=== PATIENT | female | born 1965 | race Caucasian/White ===

== ENCOUNTER → 2017-04-10 | Outpatient (CLI) | payer BC ==
--- NOTE | 2017-04-14 10:00 | MM ---
Reason for exam: screening (asymptomatic). Last mammogram was performed 1 year and 1 month ago. History: Family history of breast cancer in mother at age 48. Took hormonal contraceptives for 10 years. Physical Findings: A clinical breast exam by your physician is recommended on an annual basis and results should be correlated with mammographic findings. MG Screening Mammo w CAD Bilateral CC and MLO view(s) were taken. Prior study comparison: March 05, 2016, bilateral MG screening mammo w CAD. August 12, 2014, bilateral MG screening mammo w CAD. There are scattered fibroglandular densities. No significant changes when compared with prior studies. ASSESSMENT: Benign, BI-RAD 2 RECOMMENDATION: Routine screening mammogram of both breasts in 1 year.
== END | disposition home or self-care (01) ==
LOC: RADMAMWWP 15:36
PROVIDERS: ATTEND Obstetrics & Gynecology
DX: Z12.31 Encounter for screening mammogram for malignant neoplasm of breast (principal)

== ENCOUNTER 2017-05-04 01:59 | Emergency (ER) | payer BC ==
[2017-05-04 02:07] VITALS: TEMP 97.1
[2017-05-04] MEDS ORDERED: predniSONE 50 MG TAB PO STA (02:55)
[2017-05-04] MEDS ORDERED: ORPHENADRINE 30 MG/ML 2 ML VIAL IM STA (02:55)
[2017-05-04] MEDS ORDERED: HYDROmorphone 1 MG/ML 1 ML SYRINGE IM STA (02:55)
--- NOTE | 2017-05-04 03:04 | ED ---
Back Pain [facility] - General Chief Complaint: Back Pain/Injury Stated Complaint: low back pain Time Seen by Provider: 05/04/17 02:23 Source: patient, family, RN notes reviewed Limitations: no limitations - History of Present Illness Initial Comments: 51-year-old female presents emergency Department with chief complaint of low back pain. She's been having increasing pain over the last couple days. 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 She states that she has a history of similar problems with this. She denies any bowel tenderness bladder retention. Denies any abdominal pain. She does have some pain that radiates to her left leg to her knee denies any associated paresthesias or weakness. Patient had prior cervical fusion but no other spinal surgeries. Patient states that she took tramadol and Ativan at home earlier this evening with no relief. - Related Data Home Medications Medication Instructions Recorded Confirmed Dewaopy-Eskf-[id number] 2 each PO Q4HR PRN 11/29/14 12/07/14 [Excedrin] DULoxetine HCL [Cymbalta] 60 mg PO BID 11/29/14 12/07/14 LORazepam [Ativan] 0.5 mg PO DAILY 11/29/14 12/07/14 Levothyroxine Sodium [Synthroid] 150 mcg PO DAILY 11/29/14 12/07/14 Multivitamins, Thera [Theragran] 1 each PO DAILY 11/29/14 12/07/14 Propranolol HCl [Inderal LA] 80 mg PO DAILY 11/29/14 12/07/14 valACYclovir HCL [Valacyclovir] 1,000 mg PO DAILY 11/29/14 12/07/14 Previous Rx's Medication Instructions Recorded oxyCODONE HCL/ACETAMINOPHEN 1 each PO Q6HR PRN #90 tab 12/07/14 [Percocet 7.5-325 mg] Cyclobenzaprine [Flexeril] 10 mg PO TID PRN #15 tab 05/04/17 HYDROcodone/APAP 7.5-325MG [[place] 1 tab PO Q6HR PRN #25 tab 05/04/17 7.5-325] predniSONE 50 mg PO DAILY #4 tab 05/04/17 Allergies Allergy/AdvReac Type Severity Reaction Status Date / Time topiramate [From Topamax] Allergy Itching Verified 05/04/17 02:07 Review of Systems ROS Statement: Those systems with pertinent positive or pertinent negative responses have been documented in the HPI. ROS Other: All systems not noted in ROS Statement are negative. Past Medical History Additional Past Medical History / Comment(s): neck pain, back pain History of Any Multi-Drug Resistant Organisms: None Reported Past Surgical History: Appendectomy, Section, Hysterectomy Past Psychological History: No Psychological Hx Reported Smoking Status: Never smoker General Exam Limitations: no limitations General appearance: alert, in no apparent distress Head exam: Present: atraumatic, normocephalic, normal inspection Respiratory exam: Present: normal lung sounds bilaterally. Absent: respiratory distress, wheezes, rales, rhonchi, stridor Cardiovascular Exam: Present: regular rate, normal rhythm, normal heart sounds. Absent: systolic murmur, diastolic murmur, rubs, gallop, clicks GI/Abdominal exam: Present: soft, normal bowel sounds. Absent: distended, tenderness, guarding, rebound, rigid Extremities exam: Present: normal inspection, full ROM, normal capillary refill , other (Lower extremity strength equal bilaterally, neurovascular intact pulses equal bilaterally). Absent: tenderness, pedal edema, joint swelling, calf tenderness Back exam: Present: full ROM (With moderate discomfort), tenderness (Tenderness of left lumbar region), paraspinal tenderness, other (Pain with left straight leg raise). Absent: CVA tenderness (R), CVA tenderness (L), vertebral tenderness Neurological exam: Present: alert, oriented X3, CN II-XII intact, reflexes normal. Absent: motor sensory deficit Skin exam: Present: warm, dry, intact, normal color. Absent: rash Course Vital Signs 05/04/17 05/04/17 02:03 03:06 Temperature 97.1 F L Pulse Rate 89 85 Respiratory 18 16 Rate Blood Pressure 141/72 121/70 O2 Sat by Pulse 100 96 Oximetry Medical Decision Making - Medical Decision Making 51-year-old female presented for low back pain. Patient lumbar radiculopathy. Patient has no red flecks symptoms. Patient pain was addressed here in emergency department be discharged with pain medication advised to do daily stretching heat and ice follow-up with PCP return parameters were discussed. Patient agrees to plan. Disposition Clinical Impression: Strain of lumbar region, Lumbar radiculopathy Disposition: HOME SELF-CARE Condition: Stable Instructions: Acute Low Back Pain (ED) Additional Instructions: Please return to the Emergency Department if symptoms worsen or any other concerns. Prescriptions: Cyclobenzaprine [Flexeril] 10 mg PO TID PRN #15 tab PRN Reason: Muscle Spasm HYDROcodone/APAP 7.5-325MG [[place] 7.5-325] 1 tab PO Q6HR PRN #25 tab PRN Reason: Pain predniSONE 50 mg PO DAILY #4 tab Referrals: Aba Ferguson MD [Primary Care Provider] - 1-2 days Time of Disposition: 03:04
[2017-05-04 03:17] VITALS: BP 121/70; PULSE 85; RESP 16
== END 2017-05-04 03:19 | disposition home or self-care (01) ==
LOC: EC 01:59
DX: S39.012A Strain of muscle, fascia and tendon of lower back, initial encounter (principal); M54.16 Radiculopathy, lumbar region; Z98.1 Arthrodesis status; Z88.8 Allergy status to other drugs, medicaments and biological substances; Z79.899 Other long term (current) drug therapy; X50.1XXA Overexertion from prolonged static or awkward postures, initial encounter
CPT/HCPCS: 99282; 96372 ×2; J2360; J1170; J7512

== ENCOUNTER → 2018-04-13 | Outpatient (CLI) | payer BC ==
--- NOTE | 2018-04-14 11:25 | MM ---
Reason for exam: screening (asymptomatic). Last mammogram was performed 1 year ago. History: Family history of breast cancer in mother at age 48. Took hormonal contraceptives for 10 years. Physical Findings: A clinical breast exam by your physician is recommended on an annual basis and results should be correlated with mammographic findings. MG Screening Mammo w CAD Bilateral CC and MLO view(s) were taken. Prior study comparison: April 10, 2017, bilateral MG screening mammo w CAD. March 05, 2016, bilateral MG screening mammo w CAD. There are scattered fibroglandular densities. No suspicious abnormality. No significant changes when compared with prior studies. ASSESSMENT: Benign, BI-RAD 2 RECOMMENDATION: Routine screening mammogram of both breasts in 1 year.
== END | disposition home or self-care (01) ==
LOC: RADMAMWWP 10:31
PROVIDERS: ATTEND Obstetrics & Gynecology
DX: Z12.31 Encounter for screening mammogram for malignant neoplasm of breast (principal)
CPT/HCPCS: 77067

== ENCOUNTER 2018-07-22 21:07 | Emergency (ER) | payer BC ==
[2018-07-22 21:28] VITALS: TEMP 98.7
--- NOTE | 2018-07-22 21:36 | ED ---
Psych HPI - General Source: patient, RN notes reviewed, old records reviewed Mode of arrival: ambulatory - History of Present Illness MD Complaint: suicidal ideation, feels depressed -: unknown Associated Psychiatric Symptoms: suicidal ideation, racing thoughts History of same: Yes Quality: constant Improves With: none Worsens With: none Associated Symptoms: denies other symptoms Treatments Prior to Arrival: placed on mental health hold If Self Harm: admits thoughts of self harm <Dewey Valdes - Last Filed: 07/22/18 22:20> <Damari Basurto - Last Filed: 07/23/18 03:52> - General Chief Complaint: Psychiatric Symptoms Stated Complaint: Petition Time Seen by Provider: 07/22/18 21:33 - History of Present Illness Initial Comments: This is a 53-year-old female the ER for evaluation. Patient presents for evaluation of mental health. Patient did states she has suicidal intent today. Patient does abuse polypharmacy, multiple drugs. Does admit to positive psychiatric illness currently with suicidal thoughts (Dewey Valdes) - Related Data Home Medications Medication Instructions Recorded Confirmed Njlohvl-Awjc-Asoq [id number] 2 each PO Q4HR PRN 11/29/14 12/07/14 [Excedrin] DULoxetine HCL [Cymbalta] 60 mg PO BID 11/29/14 12/07/14 LORazepam [Ativan] 0.5 mg PO DAILY 11/29/14 12/07/14 Levothyroxine Sodium [Synthroid] 150 mcg PO DAILY 11/29/14 12/07/14 Multivitamins, Thera [Theragran] 1 each PO DAILY 11/29/14 12/07/14 Propranolol HCl [Inderal LA] 80 mg PO DAILY 11/29/14 12/07/14 valACYclovir HCL [Valacyclovir] 1,000 mg PO DAILY 11/29/14 12/07/14 Previous Rx's Medication Instructions Recorded oxyCODONE HCL/ACETAMINOPHEN 1 each PO Q6HR PRN #90 tab 12/07/14 [Percocet 7.5-325 mg] Cyclobenzaprine [Flexeril] 10 mg PO TID PRN #15 tab 05/04/17 HYDROcodone/APAP 7.5-325MG [[place] 1 tab PO Q6HR PRN #25 tab 05/04/17 7.5-325] predniSONE 50 mg PO DAILY #4 tab 05/04/17 Allergies Allergy/AdvReac Type Severity Reaction Status Date / Time topiramate [From Topamax] Allergy Itching Verified 07/22/18 21:28 Review of Systems ROS Other: All systems not noted in ROS Statement are negative. <Dewey Valdes - Last Filed: 07/22/18 22:20> ROS Other: All systems not noted in ROS Statement are negative. <Damari Basurto - Last Filed: 07/23/18 03:52> ROS Statement: Those systems with pertinent positive or pertinent negative responses have been documented in the HPI. Past Medical History Additional Past Medical History / Comment(s): neck pain, back pain History of Any Multi-Drug Resistant Organisms: None Reported Past Surgical History: Appendectomy, Section, Hysterectomy Past Psychological History: No Psychological Hx Reported Smoking Status: Never smoker Past Alcohol Use History: None Reported Past Drug Use History: None Reported <Dewey Valdes - Last Filed: 07/22/18 22:20> General Exam Limitations: no limitations General appearance: alert, appears intoxicated Head exam: Present: atraumatic, normocephalic, normal inspection Eye exam: Present: normal appearance, PERRL, EOMI. Absent: scleral icterus, conjunctival injection, periorbital swelling ENT exam: Present: normal exam, mucous membranes moist Neck exam: Present: normal inspection. Absent: tenderness, meningismus, lymphadenopathy Respiratory exam: Present: normal lung sounds bilaterally. Absent: respiratory distress, wheezes, rales, rhonchi, stridor Cardiovascular Exam: Present: regular rate, normal rhythm, normal heart sounds. Absent: systolic murmur, diastolic murmur, rubs, gallop, clicks GI/Abdominal exam: Present: soft, normal bowel sounds. Absent: distended, tenderness, guarding, rebound, rigid Extremities exam: Present: normal inspection, full ROM, normal capillary refill. Absent: tenderness, pedal edema, joint swelling, calf tenderness Back exam: Present: normal inspection Neurological exam: Present: alert, oriented X3, CN II-XII intact Psychiatric exam: Present: normal affect, normal mood Skin exam: Present: warm, dry, intact, normal color. Absent: rash <Dewey Valdes - Last Filed: 07/22/18 22:20> Course <Dewey Valdes - Last Filed: 07/22/18 22:20> Vital Signs 07/22/18 07/23/18 21:22 00:56 Temperature 98.7 F Pulse Rate 108 H 98 Respiratory 20 16 Rate Blood Pressure 166/105 165/105 O2 Sat by Pulse 97 98 Oximetry - Reevaluation(s) Reevaluation #1: 07/22/18 22:20 Medical record is reviewed (Dewey Valdes) Reevaluation #2: 07/22/18 22:20 Medical clear for psychiatric evaluation, patient's petition (Dewey Valdes) Medical Decision Making <Damari Basurto - Last Filed: 07/23/18 03:52> - Medical Decision Making She was evaluated by EPS to determine the patient is acutely intoxicated but otherwise stable for discharge and outpatient follow-up (Damari Basurto) - Lab Data Lab Results 07/22/18 Range/Units 21:53 Urine Opiates Screen Detected H (NotDetected) Ur Oxycodone Screen Not Detected (NotDetected) Urine Methadone Screen Not Detected (NotDetected) Ur Propoxyphene Screen Not Detected (NotDetected) Ur Barbiturates Screen Not Detected (NotDetected) U Tricyclic Antidepress Not Detected (NotDetected) Ur Phencyclidine Scrn Not Detected (NotDetected) Ur Amphetamines Screen Detected H (NotDetected) U Methamphetamines Scrn Not Detected (NotDetected) U Benzodiazepines Scrn Detected H (NotDetected) Urine Cocaine Screen Not Detected (NotDetected) U Marijuana (THC) Screen Detected H (NotDetected) Disposition <Dewey Valdes - Last Filed: 07/22/18 22:20> Is patient prescribed a controlled substance at d/c from ED?: No <Damari Basurto - Last Filed: 07/23/18 03:52> Clinical Impression: Agitation Disposition: HOME SELF-CARE Condition: Stable Instructions (If sedation given, give patient instructions): Polysubstance Abuse (ED) Referrals: Aba Ferguson MD [Primary Care Provider] - 1-2 days
[2018-07-22 22:17] LABS: Amphetamine Screen,Urine Detected (NotDetected); Barbiturate Screen,Urine Not Detected (NotDetected); Benzodiazepines Screen,Urine Detected (NotDetected); Cocaine Screen,Urine Not Detected (NotDetected); Methadone Screen, Urine Not Detected (NotDetected); Opiate Screen,Urine Detected (NotDetected); Oxycodone Screen, Urine Not Detected (NotDetected); Phencyclidine Screen,Urine Not Detected (NotDetected); Tricyclic Antidepressant,Urine Not Detected (NotDetected); Urn Cannabinoid Scrn Detected (NotDetected)
[2018-07-23 00:56] VITALS: BP 165/105; PULSE 98; RESP 16
== END 2018-07-23 01:08 | disposition home or self-care (01) ==
LOC: EC 21:07
DX: R45.1 Restlessness and agitation (principal); R45.851 Suicidal ideations; F32.9 Major depressive disorder, single episode, unspecified; Z79.890 Hormone replacement therapy; Z79.899 Other long term (current) drug therapy; Z88.8 Allergy status to other drugs, medicaments and biological substances
CPT/HCPCS: 80306; 99285

== ENCOUNTER → 2019-03-26 | Outpatient (CLI) | payer BC ==
--- NOTE | 2019-03-26 09:51 | MR ---
EXAMINATION TYPE: MR cervical spine wo/w con DATE OF EXAM: 03/26/2019 COMPARISON: Plain film 12/07/2014 HISTORY: cervicalgia TECHNIQUE: Multiplanar, multisequence images of the cervical spine were acquired utilizing 7 mL intravenous Gada vist gadolinium contrast. Diffusion weighted imaging was performed. C2-C3: Uncovertebral joint hypertrophy, facet arthropathy results in some mild foraminal encroachment on the left, no disc herniation or spinal stenosis C3-C4: There is foraminal encroachment present right greater than left. Posterior broad-based disc bu lge may contact the anterior cervical cord, mild spinal stenosis. C4-C5: Posterior broad-based disc bulge contacts the anterior cervical cord, mild spinal stenosis is suggested, there is left-sided foraminal encroachment due to uncovertebral joint hypertrophy and face t arthropathy. C5-C6: Posterior extension of heart disc may contact the anterior cervical cord, mild spinal stenosis . Foraminal encroachment is present on the right greater than left. C6-C7: No significant spinal stenosis or disc herniation, no foraminal encroachment. C7-T1: No significant foraminal encroachment or spinal stenosis. No disc herniation. Cervical segments are intact. There is normal alignment. Cervical spinal cord is of normal signal. Craniovertebral junction relationships are within normal limits. Patient is status post anterior ce rvical fusion and discectomy at C5-C7. Susceptibility artifact due to patient's hardware is present. Loss of disc height signal is present at the intervertebral levels C2-3, C3-4, C4-5, C7-T1 as well as upper thoracic spine. Suspect a curvature in the upper thoracic spine. No abnormal enhancement follo wing contrast administration. Mild inflammatory change in the sphenoid sinus. IMPRESSION: Postop changes. Degenerative disc disease, multilevel foraminal encroachment.
== END | disposition home or self-care (01) ==
LOC: RADMRIMAIN 08:51
PROVIDERS: ATTEND Orthopaedic Surgery Orthopaedic Surgery of the Spine
DX: M50.30 Other cervical disc degeneration, unspecified cervical region (principal); Z98.1 Arthrodesis status
CPT/HCPCS: 72156

== ENCOUNTER → 2019-05-12 | Outpatient (CLI) | payer BC ==
--- NOTE | 2019-05-13 14:23 | MM ---
Reason for exam: screening (asymptomatic). Last mammogram was performed 1 year and 1 month ago. History: Family history of breast cancer in mother at age 48. Took hormonal contraceptives for 10 years. Physical Findings: A clinical breast exam by your physician is recommended on an annual basis and results should be correlated with mammographic findings. MG Screening Mammo w CAD Bilateral CC and MLO view(s) were taken. Prior study comparison: April 13, 2018, bilateral MG screening mammo w CAD. April 10, 2017, bilateral MG screening mammo w CAD. There are scattered fibroglandular densities. No suspicious abnormality. No significant changes when compared with prior studies. ASSESSMENT: Negative, BI-RAD 1 RECOMMENDATION: Routine screening mammogram of both breasts in 1 year.
== END | disposition home or self-care (01) ==
LOC: RADMAMWWP 07:39
PROVIDERS: ATTEND Obstetrics & Gynecology
DX: Z12.31 Encounter for screening mammogram for malignant neoplasm of breast (principal); Z80.3 Family history of malignant neoplasm of breast
CPT/HCPCS: 77067

== ENCOUNTER 2019-12-15 08:14 | Emergency (ER) | payer BC ==
[2019-12-15 08:20] VITALS: TEMP 97.5
[2019-12-15] MEDS ORDERED: HYDROmorphone 0.5 MG/0.5 ML SYRINGE IVP STA (08:27)
[2019-12-15] MEDS ORDERED: ONDANSETRON 4 MG/2 ML VIAL IVP STA (08:27)
[2019-12-15] MEDS ORDERED: SODIUM CHLORIDE 0.9% 2,000 ML IV STA (08:27)
--- NOTE | 2019-12-15 08:33 | ED ---
Abdominal Pain HPI - General Source: patient, RN notes reviewed Mode of arrival: ambulatory Limitations: no limitations <Rufino Lassiter - Last Filed: 12/15/19 10:17> <Mai Wong - Last Filed: 12/15/19 22:45> - General Chief Complaint: Abdominal Pain Stated Complaint: ABD pain Time Seen by Provider: 12/15/19 08:17 - History of Present Illness Initial Comments: 54-year-old female presents emergency Department chief complaint of abdominal pain that started this morning. She states she initially thought it was just gas. Patient states that the pain has intensified primarily lower abdomen on the left. She denies any diarrhea or constipation. Denies any dysuria hematuria no history of diverticulitis. Denies any flank pain, nausea vomiting fever or chills. Patient states nothing really makes the pain feel better or worse at this time. She's had a prior appendectomy. She denies any chest pain or shortness breath. (Rufino Lassiter) - Related Data Home Medications Medication Instructions Recorded Confirmed DULoxetine HCL [Cymbalta] 60 mg PO BID 11/29/14 12/07/14 LORazepam [Ativan] 0.5 mg PO BID PRN 11/29/14 12/15/19 Levothyroxine Sodium [Synthroid] 150 mcg PO DAILY 11/29/14 12/15/19 Multivitamins, Thera [Theragran] 1 tab PO DAILY 11/29/14 12/15/19 Propranolol HCl [Inderal LA] 80 mg PO DAILY 11/29/14 12/07/14 valACYclovir HCL [Valacyclovir] 1,000 mg PO DAILY 11/29/14 12/15/19 Butalb/APAP/Caff 50-325-40Mg 1 tab PO BID PRN 12/15/19 12/15/19 [Fioricet 50-325-40] Phentermine HCl [Adipex-P] 37.5 mg PO DAILY 12/15/19 12/15/19 Previous Rx's Medication Instructions Recorded Cyclobenzaprine [Flexeril] 10 mg PO TID PRN #15 tab 05/04/17 HYDROcodone/APAP 10-325MG [[place] 1 tab PO Q6HR PRN 3 Days #12 tab 12/15/19 10-325] Ketorolac [Toradol] 10 mg PO Q8HR #15 tab 12/15/19 Ondansetron Odt [Zofran Odt] 4 mg PO Q8HR PRN #10 tab 12/15/19 Tamsulosin [Flomax] 0.4 mg PO DAILY #7 cap 12/15/19 Allergies Allergy/AdvReac Type Severity Reaction Status Date / Time topiramate [From Topamax] Allergy Itching Verified 12/15/19 09:22 Review of Systems ROS Other: All systems not noted in ROS Statement are negative. <Rufino Lassiter - Last Filed: 12/15/19 10:17> ROS Other: All systems not noted in ROS Statement are negative. <Mai Wong - Last Filed: 12/15/19 22:45> ROS Statement: Those systems with pertinent positive or pertinent negative responses have been documented in the HPI. Past Medical History Additional Past Medical History / Comment(s): chronic neck pain, back pain History of Any Multi-Drug Resistant Organisms: None Reported Past Surgical History: Appendectomy, Section, Hysterectomy Past Psychological History: No Psychological Hx Reported Smoking Status: Never smoker Past Alcohol Use History: None Reported Past Drug Use History: Marijuana <Rufino Lassiter - Last Filed: 12/15/19 10:17> General Exam Limitations: no limitations General appearance: alert, in no apparent distress Head exam: Present: atraumatic, normocephalic, normal inspection Eye exam: Present: normal appearance, PERRL, EOMI. Absent: scleral icterus, conjunctival injection, periorbital swelling Neck exam: Present: normal inspection, full ROM. Absent: tenderness, meningismu s, lymphadenopathy Respiratory exam: Present: normal lung sounds bilaterally. Absent: respiratory distress, wheezes, rales, rhonchi, stridor Cardiovascular Exam: Present: regular rate, normal rhythm, normal heart sounds. Absent: systolic murmur, diastolic murmur, rubs, gallop, clicks GI/Abdominal exam: Present: soft, tenderness (Moderate left lower quadrant tenderness), normal bowel sounds. Absent: distended, guarding, rebound, rigid Back exam: Absent: CVA tenderness (R), CVA tenderness (L) Neurological exam: Present: alert, oriented X3 Skin exam: Present: warm, dry, intact, normal color. Absent: rash <Rufino Lassiter - Last Filed: 12/15/19 10:17> Course Vital Signs 12/15/19 12/15/19 12/15/19 08:17 09:06 09:59 Temperature 97.5 F L Pulse Rate 79 81 72 Respiratory 18 14 16 Rate Blood Pressure 175/112 168/91 O2 Sat by Pulse 100 100 100 Oximetry Medical Decision Making - Lab Data Result diagrams: 12/15/19 08:44 12/15/19 08:44 <Rufino Lassiter - Last Filed: 12/15/19 10:17> - Lab Data Result diagrams: 12/15/19 08:44 12/15/19 08:44 <Mai Wong - Last Filed: 12/15/19 22:45> - Medical Decision Making 54-year-old female presented for left lower quadrant flank pain. Patient has a 2-3 mm UVJ stone. Pain is improved after pain meds, fluids Toradol. Patient discharged with pain meds Toradol and Zofran and Flomax patient follow-up with primary care physician and urology. (Rufino Lassiter) I was available for consultation in the emergency department. The history and physical exam were done by the midlevel provider. I was consulted for this patients care. I reviewed the case with the midlevel provider and based on their presentation of the patient, I agree with the assessment, medical decision making and plan of care as documented. Chart was dictated using [employer] dictation software. Attempts were made to correct any dictation errors however some typographical errors may persist. Patient was seen during a national state of emergency due to the Covid-19 pandemic. (Mai Wong) - Lab Data Lab Results 12/15/19 12/15/19 12/15/19 Range/Units 08:44 08:44 08:44 WBC 11.8 H (3.8-10.6) k/uL RBC 4.35 (3.80-5.40) m/uL Hgb 13.1 (11.4-16.0) gm/dL Hct 40.5 (34.0-46.0) % MCV 93.3 (80.0-100.0) fL MCH 30.2 (25.0-35.0) pg MCHC 32.3 (31.0-37.0) g/dL RDW 12.8 (11.5-15.5) % Plt Count 347 (150-450) k/uL Neutrophils % 82 % Lymphocytes % 9 % Monocytes % 5 % Eosinophils % 2 % Basophils % 0 % Neutrophils # 9.7 H (1.3-7.7) k/uL Lymphocytes # 1.1 (1.0-4.8) k/uL Monocytes # 0.6 (0-1.0) k/uL Eosinophils # 0.3 (0-0.7) k/uL Basophils # 0.0 (0-0.2) k/uL Sodium 133 L (137-145) mmol/L Potassium 4.3 (3.5-5.1) mmol/L Chloride 101 (98-107) mmol/L Carbon Dioxide 24 (22-30) mmol/L Anion Gap 8 mmol/L BUN 14 (7-17) mg/dL Creatinine 0.47 L (0.52-1.04) mg/dL Est GFR (CKD-EPI)AfAm >90 (>60 ml/min/1.73 sqM) Est GFR (CKD-EPI)NonAf >90 (>60 ml/min/1.73 sqM) Glucose 105 H (74-99) mg/dL Plasma Lactic Acid Markus (0.7-2.0) mmol/L Calcium 9.6 (8.4-10.2) mg/dL Total Bilirubin 0.3 (0.2-1.3) mg/dL AST 27 (14-36) U/L ALT 18 (4-34) U/L Alkaline Phosphatase 62 (38-126) U/L Total Protein 6.9 (6.3-8.2) g/dL Albumin 4.2 (3.5-5.0) g/dL Lipase 61 (23-300) U/L Urine Color Yellow Urine Appearance Clear (Clear) Urine pH 6.5 (5.0-8.0) Ur Specific [place] 1.019 (1.001-1.035) Urine Protein Negative (Negative) Urine Glucose (UA) Negative (Negative) Urine Ketones Negative (Negative) Urine Blood Negative (Negative) Urine Nitrite Negative (Negative) Urine Bilirubin Negative (Negative) Urine Urobilinogen <2.0 (<2.0) mg/dL Ur Leukocyte Esterase Negative (Negative) 12/15/19 Range/Units 08:44 WBC (3.8-10.6) k/uL RBC (3.80-5.40) m/uL Hgb (11.4-16.0) gm/dL Hct (34.0-46.0) % MCV (80.0-100.0) fL MCH (25.0-35.0) pg MCHC (31.0-37.0) g/dL RDW (11.5-15.5) % Plt Count (150-450) k/uL Neutrophils % % Lymphocytes % % Monocytes % % Eosinophils % % Basophils % % Neutrophils # (1.3-7.7) k/uL Lymphocytes # (1.0-4.8) k/uL Monocytes # (0-1.0) k/uL Eosinophils # (0-0.7) k/uL Basophils # (0-0.2) k/uL Sodium (137-145) mmol/L Potassium (3.5-5.1) mmol/L Chloride (98-107) mmol/L Carbon Dioxide (22-30) mmol/L Anion Gap mmol/L BUN (7-17) mg/dL Creatinine (0.52-1.04) mg/dL Est GFR (CKD-EPI)AfAm (>60 ml/min/1.73 sqM) Est GFR (CKD-EPI)NonAf (>60 ml/min/1.73 sqM) Glucose (74-99) mg/dL Plasma Lactic Acid Markus 1.1 (0.7-2.0) mmol/L Calcium (8.4-10.2) mg/dL Total Bilirubin (0.2-1.3) mg/dL AST (14-36) U/L ALT (4-34) U/L Alkaline Phosphatase (38-126) U/L Total Protein (6.3-8.2) g/dL Albumin (3.5-5.0) g/dL Lipase (23-300) U/L Urine Color Urine Appearance (Clear) Urine pH (5.0-8.0) Ur Specific [place] (1.001-1.035) Urine Protein (Negative) Urine Glucose (UA) (Negative) Urine Ketones (Negative) Urine Blood (Negative) Urine Nitrite (Negative) Urine Bilirubin (Negative) Urine Urobilinogen (<2.0) mg/dL Ur Leukocyte Esterase (Negative) Disposition Is patient prescribed a controlled substance at d/c from ED?: Yes When asked, does pt state using other controlled substances?: No If prescribed controlled substance>3 days was MAPS reviewed?: Prescribed <3 Days If opioid is for acute pain is fill amount 7 days or less?: Yes If Rx opioid, was Start Talking consent form obtained?: Yes Time of Disposition: 10:20 <Rufino Lassiter - Last Filed: 12/15/19 10:17> <Mai Wong - Last Filed: 12/15/19 22:45> Clinical Impression: Left ureteral calculus Disposition: HOME SELF-CARE Condition: Stable Instructions (If sedation given, give patient instructions): Kidney Stones (ED) Additional Instructions: Please return to the Emergency Department if symptoms worsen or any other concerns. Prescriptions: Tamsulosin [Flomax] 0.4 mg PO DAILY #7 cap HYDROcodone/APAP 10-325MG [[place] 10-325] 1 tab PO Q6HR PRN 3 Days #12 tab PRN Reason: pain Ketorolac [Toradol] 10 mg PO Q8HR #15 tab Ondansetron Odt [Zofran Odt] 4 mg PO Q8HR PRN #10 tab PRN Reason: Nausea Referrals: Aba Ferguson MD [Primary Care Provider] - 1-2 days Yves Choi MD [STAFF PHYSICIAN] - 1-2 days
[2019-12-15] MEDS ORDERED: HYDROmorphone 1 MG/ML 1 ML SYRINGE IVP STA (08:56)
[2019-12-15 09:10] LABS: Appearance,Urine Clear (Clear); Bilirubin,Urine Negative (Negative); Blood,Urine Negative (Negative); Color,Urine Yellow; Glucose,Urine (UA) Negative (Negative); Ketones,Urine Negative (Negative); Leukocyte Esterase,Urine Negative (Negative); Nitrite,Urine Negative (Negative); PH, Urine 6.5 (5.0-8.0); Protein,Urine Negative (Negative); Specific Gravity,Urine 1.019 (1.001-1.035); Urobilinogen,Urine <2.0 mg/dL (<2.0)
[2019-12-15 09:14] LABS: Basophils % (A) 0 %; Eosinophils # (A) 0.3 k/uL (0-0.7); Eosinophils % (A) 2 %; HCT 40.5 % (34.0-46.0); HGB 13.1 gm/dL (11.4-16.0); Lymphocytes # (A) 1.1 k/uL (1.0-4.8); Lymphocytes % (A) 9 %; MCH 30.2 pg (25.0-35.0); MCHC 32.3 g/dL (31.0-37.0); MCV 93.3 fL (80.0-100.0); Mean Platelet Volume 7.3; Monocytes # (A) 0.6 k/uL (0-1.0); Monocytes % (A) 5 %; Neutrophils # (A) 9.7 k/uL (1.3-7.7); Neutrophils % (A) 82 %; Platelet Count 347 k/uL (150-450); RBC 4.35 m/uL (3.80-5.40); RDW 12.8 % (11.5-15.5); WBC 11.8 k/uL (3.8-10.6)
--- NOTE | 2019-12-15 09:14 | CT ---
EXAMINATION TYPE: CT abdomen pelvis w con DATE OF EXAM: 12/15/2019 HISTORY: generalized pain not further specified per order. CT DLP: 726.5mGycm Automated Exposure Control for Dose Reduction was Utilized. CONTRAST: CT scan of the abdomen and pelvis is performed without oral but with IV Contrast, patient injected wi th 100 mL of Isovue 300. COMPARISON: None FINDINGS: LUNG BASES: No significant abnormality is appreciated. LIVER/GB: No significant abnormality is appreciated. PANCREAS: No significant abnormality is seen. SPLEEN: No significant abnormality is seen. ADRENALS: No significant abnormality is seen. KIDNEYS: There is asymmetric left-sided delayed or absent excretion secondary to obstructing 2 to 3 m m calculus at left UVJ axial image 70 causing asymmetric fairly moderate left-sided hydronephrosis an d hydroureter. No additional renal calculi bilaterally. No right-sided hydronephrosis. No intralumina l calculus in the poorly distended bladder. BOWEL: Slightly suboptimal evaluation of bowel without enteric contrast. No suspicious small or larg e bowel dilatation. Moderate prominence of fecal material in the right colon. Low-lying cecum into th e right pelvis. UTERUS/ADNEXA: Uterus surgically absent or markedly atrophic. Few scattered adjacent pelvic phlebolit hs noted. LYMPH NODES: No greater than 1cm abdominal or pelvic lymph nodes are appreciated. OSSEOUS STRUCTURES: Dextroconvex scoliosis centered near the thoracolumbar junction. Slight grade 1 a nterolisthesis L4 on L5. Mild to moderate multilevel spurring in the spine. Moderate disc space narro wing T11-T12 level with mild to moderate spurring. Mild to moderate axial joint space loss in both hi ps. Facet arthropathy lower lumbar levels. OTHER: Overlying metallic umbilical ornament. IMPRESSION: There is 2 to 3 mm calculus at left UVJ causing moderate left-sided hydronephrosis and de layed excretion.
[2019-12-15] MEDS ORDERED: KETOROLAC 15 MG/ML 1 ML VIAL IVP STA (09:16)
[2019-12-15] MEDS ORDERED: TAMSULOSIN 0.4 MG CAP.ER.24H PO STA (09:17)
[2019-12-15 09:19] LABS: ALT 18 U/L (4-34); AST 27 U/L (14-36); African American GFR (CKD) >90 (>60 ml/min/1.73 sqM); Albumin 4.2 g/dL (3.5-5.0); Alkaline Phosphatase 62 U/L (38-126); Anion Gap 8 mmol/L; Blood Urea Nitrogen 14 mg/dL (7-17); Calcium 9.6 mg/dL (8.4-10.2); Carbon Dioxide 24 mmol/L (22-30); Chloride 101 mmol/L (98-107); Glucose 105 mg/dL (74-99); Non-African American GFR(CKD) >90 (>60 ml/min/1.73 sqM); Potassium 4.3 mmol/L (3.5-5.1); Sodium 133 mmol/L (137-145); Total Bilirubin 0.3 mg/dL (0.2-1.3); Total Protein 6.9 g/dL (6.3-8.2)
[2019-12-15 10:00] VITALS: BP 168/91; PULSE 72; RESP 16
== END 2019-12-15 10:28 | disposition home or self-care (01) ==
LOC: EC 08:14
DX: N13.2 Hydronephrosis with renal and ureteral calculous obstruction (principal); Z79.899 Other long term (current) drug therapy; Z79.890 Hormone replacement therapy; Z90.89 Acquired absence of other organs; Z90.710 Acquired absence of both cervix and uterus; Z88.8 Allergy status to other drugs, medicaments and biological substances
CPT/HCPCS: 36415; 80053; 83605; 83690; 85025; 81003; 74177; 99284; 96374; 96375 ×2; 96376; 96361; J2405; J1170 ×2; J1885; Q9967

== ENCOUNTER → 2020-07-04 | Outpatient (CLI) | payer BC ==
--- NOTE | 2020-07-04 12:37 | MM ---
Reason for exam: screening (asymptomatic). Last mammogram was performed 1 year and 2 months ago. History: Patient is postmenopausal. Family history of breast cancer in mother at age 48. Took hormonal contraceptives for 10 years. Physical Findings: A clinical breast exam by your physician is recommended on an annual basis and results should be correlated with mammographic findings. MG Screening Mammo w CAD Bilateral CC and MLO view(s) were taken. Prior study comparison: May 12, 2019, bilateral MG screening mammo w CAD. April 13, 2018, bilateral MG screening mammo w CAD. There are scattered fibroglandular densities. There is no discrete abnormality. ASSESSMENT: Negative, BI-RAD 1 RECOMMENDATION: Routine screening mammogram of both breasts in 1 year.
== END ==
LOC: RADMAMWWP 11:26
PROVIDERS: ATTEND Obstetrics & Gynecology
DX: Z12.31 Encounter for screening mammogram for malignant neoplasm of breast (principal); Z80.3 Family history of malignant neoplasm of breast; Z78.0 Asymptomatic menopausal state
CPT/HCPCS: 77067

== ENCOUNTER → 2021-07-05 | Outpatient (CLI) | payer BC ==
--- NOTE | 2021-07-09 10:32 | MM ---
Reason for exam: screening (asymptomatic). Last mammogram was performed 1 year ago. History: Patient is postmenopausal. Family history of breast cancer in mother at age 48. Took hormonal contraceptives for 10 years. Physical Findings: A clinical breast exam by your physician is recommended on an annual basis and results should be correlated with mammographic findings. MG 3D Screening Mammo W/Cad Bilateral CC and MLO view(s) were taken. Prior study comparison: July 04, 2020, bilateral MG screening mammo w CAD. May 12, 2019, bilateral MG screening mammo w CAD. There are scattered fibroglandular densities. No significant changes when compared with prior studies. ASSESSMENT: Negative, BI-RAD 1 RECOMMENDATION: Routine screening mammogram of both breasts in 1 year.
== END | disposition home or self-care (01) ==
LOC: RADMAMWWP 09:16
PROVIDERS: ATTEND Obstetrics & Gynecology
DX: Z12.31 Encounter for screening mammogram for malignant neoplasm of breast (principal); Z80.3 Family history of malignant neoplasm of breast
CPT/HCPCS: 77063; 77067

== ENCOUNTER → 2022-07-12 | Outpatient (CLI) | payer BC ==
--- NOTE | 2022-07-15 09:25 | MM ---
Reason for Exam: Screening (asymptomatic). Last screening mammogram was performed 12 month(s) ago. Patient History: Menarche at age 12. First Full-Term at age 19. Hysterectomy at age 40. Postmenopausal. Patient used Hormonal Contraceptives for 10 years. Mother had breast cancer, age 48. Risk Values: Deloris 5 year model risk: 2.4%. NCI Lifetime model risk: 12.7%. Prior Study Comparison: 05/12/2019 Bilateral Screening Mammogram, [facility]. 07/04/2020 Bilateral Screening Mammogram, [facility]. 07/05/2021 Bilateral Screening Mammogram, [facility]. Tissue Density: There are scattered fibroglandular densities. Findings: Analyzed By CAD. There is no suspicious group of microcalcifications or new suspicious mass in either breast. Overall Assessment: Negative, BI-RAD 1 Management: Screening Mammogram of both breasts in 1 year. A clinical breast exam by your physician is recommended on an annual basis and results should be correlated with mammographic findings. Electronically signed and approved by: Homar Khan M.D.
== END | disposition home or self-care (01) ==
LOC: RADMAMWWP 08:21
PROVIDERS: ATTEND Obstetrics & Gynecology
DX: Z12.31 Encounter for screening mammogram for malignant neoplasm of breast (principal); Z78.0 Asymptomatic menopausal state; Z80.3 Family history of malignant neoplasm of breast
CPT/HCPCS: 77063; 77067

== ENCOUNTER → 2023-10-09 | Outpatient (CLI) | payer BC ==
--- NOTE | 2023-10-10 11:21 | MM ---
Reason for Exam: Screening (asymptomatic). Last mammogram was performed 1 year(s) and 3 month(s) ago. Patient History: Menarche at age 12. First Full-Term at age 19. Hysterectomy at age 40. Postmenopausal. Patient used Hormonal Contraceptives for 10 years. Mother had breast cancer, age 48. Risk Values: Deloris 5 year model risk: 2.5%. NCI Lifetime model risk: 12.4%. Prior Study Comparison: 07/04/2020 Bilateral Screening Mammogram, [facility]. 07/05/2021 Bilateral Screening Mammogram, [facility]. 07/12/2022 Bilateral MG 3D screening mammo w/cad, [facility]. Tissue Density: There are scattered areas of fibroglandular density. Findings: Analyzed By CAD. There is no suspicious group of microcalcifications or new suspicious mass in either breast. Overall Assessment: Benign, BI-RAD 2 Management: Screening Mammogram of both breasts in 1 year. . Patient should continue monthly self-breast exams. A clinical breast exam by your physician is recommended on an annual basis. This exam should not preclude additional follow-up of suspicious palpable abnormalities. Note on Deloris scores and lifetime risk: 1. A Deloris score greater than 3% is considered moderate risk. If this is the case, consider specialist referral to assess eligibility for a risk reducing agent. 2. If overall lifetime risk for the development of breast cancer is 20% or higher, the patient may qualify for future screening with alternating mammogram and breast MRI. Electronically signed and approved by: Fredis Wilde M.D. Radiologis
== END | disposition home or self-care (01) ==
LOC: RADMAMWWP 07:35
PROVIDERS: ATTEND Obstetrics & Gynecology
DX: Z12.31 Encounter for screening mammogram for malignant neoplasm of breast (principal); Z78.0 Asymptomatic menopausal state; Z80.3 Family history of malignant neoplasm of breast
CPT/HCPCS: 77063; 77067

== ENCOUNTER → 2024-03-23 | Outpatient (CLI) | payer BC ==
--- NOTE | 2024-03-23 18:45 | CT ---
EXAMINATION TYPE: CT brain wo con DATE OF EXAM: 03/23/2024 4:10 PM COMPARISON: 05/15/2010. CLINICAL INDICATION: Female, 58 years old with history of R55 SYNCOPE R51.9 HEADACHE S06.0XAA CONCUSS ION, syncope, headache TECHNIQUE: Brain: Axial CT images of the brain were obtained with coronal and sagittal reformats created and rev iewed. Contrast used: None. Oral contrast used: None. CT DLP: 1029.9 mGycm, Automated exposure control for dose reduction was used. FINDINGS: Brain: Extra-axial spaces: No abnormal extra-axial fluid collections. Ventricular system: Within normal limits Cerebral parenchyma: No acute intraparenchymal hemorrhage or mass effect. The davis-white junction is well differentiated. Cerebellum: Unremarkable. Mass effect: No evidence of midline shift. Intracranial vasculature: Atherosclerotic calcifications of the intracranial vessels. Soft tissues: Normal. Calvarium/osseous structures: No depressed skull fracture. Paranasal sinuses and mastoid air cells: Mild scattered paranasal sinus disease. Visualized orbits: Orbital contents are intact. IMPRESSION: No acute intracranial process. [facility], , 03/23/2024 6:43 PM
== END | disposition home or self-care (01) ==
LOC: RADCTMAIN 15:53
PROVIDERS: ATTEND Family Medicine
DX: S06.0XAA Concussion with loss of consciousness status unknown, initial encounter (principal); R55 Syncope and collapse; R51.9 Headache, unspecified
CPT/HCPCS: 70450

== ENCOUNTER 2024-04-17 09:40 | Emergency (ER) | payer BC ==
[2024-04-17] MEDS: KETOROLAC 15 MG/ML 1 ML VIAL IVP STA (10:02)
[2024-04-17] MEDS: HYDROmorphone 0.5 MG/0.5 ML SYRINGE IVP STA ×2 (10:03→11:28)
--- NOTE | 2024-04-17 10:06 | ED ---
General Adult HPI - General Chief complaint: Chest Pain Stated complaint: chest pain Time Seen by Provider: 04/17/24 09:45 Source: patient, RN notes reviewed, old records reviewed Mode of arrival: wheelchair Limitations: no limitations - History of Present Illness Initial comments: This is a 58-year-old female who presents to the emergency department stating that on Friday she fell forward and landed on her chest and now she has left- sided chest pain it hurts with breathing hurts to palpate. Patient states if she lays still and does not move it does not hurt that much. Patient denies any difficulty breathing but she does have painful breathing. Patient denies any fever chills but she has had a cough for about a month. Patient denies any a bdominal pain patient denies back pain. Patient denies any radiation of the pain. Patient denies any diaphoretic episode - Related Data Home Medications Medication Instructions Recorded Confirmed DULoxetine HCL [Cymbalta] 60 mg PO BID 11/29/14 12/07/14 LORazepam [Ativan] 0.5 mg PO BID PRN 11/29/14 12/15/19 Levothyroxine Sodium [Synthroid] 150 mcg PO DAILY 11/29/14 12/15/19 Multivitamins, Thera [Theragran] 1 tab PO DAILY 11/29/14 12/15/19 Propranolol HCl [Inderal LA] 80 mg PO DAILY 11/29/14 12/07/14 valACYclovir HCL [Valacyclovir] 1,000 mg PO DAILY 11/29/14 12/15/19 Butalb/APAP/Caff 50-325-40Mg 1 tab PO BID PRN 12/15/19 12/15/19 [Fioricet 50-325-40] Phentermine HCl [Adipex-P] 37.5 mg PO DAILY 12/15/19 12/15/19 Previous Rx's Medication Instructions Recorded Cyclobenzaprine [Flexeril] 10 mg PO TID PRN #15 tab 05/04/17 HYDROcodone/APAP 10-325MG [[place] 1 tab PO Q6HR PRN 3 Days #12 tab 12/15/19 10-325] Ketorolac [Toradol] 10 mg PO Q8HR #15 tab 12/15/19 Ondansetron Odt [Zofran Odt] 4 mg PO Q8HR PRN #10 tab 12/15/19 Tamsulosin [Flomax] 0.4 mg PO DAILY #7 cap 12/15/19 Ketorolac [Toradol] 10 mg PO Q8HR #15 tab 04/17/24 Allergies Allergy/AdvReac Type Severity Reaction Status Date / Time topiramate [From Topamax] Allergy Itching Verified 04/17/24 09:41 Review of Systems ROS Statement: Those systems with pertinent positive or pertinent negative responses have been documented in the HPI. ROS Other: All systems not noted in ROS Statement are negative. Past Medical History Additional Past Medical History / Comment(s): chronic neck pain, back pain. headaches. DDD History of Any Multi-Drug Resistant Organisms: None Reported Past Surgical History: Appendectomy, Section, Hysterectomy Additional Past Surgical History / Comment(s): spinal ablation Past Psychological History: No Psychological Hx Reported Smoking Status: Never smoker Past Alcohol Use History: None Reported Past Drug Use History: Marijuana General Exam - General Exam Comments Initial Comments: GENERAL: Patient is well-developed and well-nourished. Patient is nontoxic and well- hydrated and is in moderate distress. ENT: Neck is soft and supple. No significant lymphadenopathy is noted. Oropharynx is clear. Moist mucous membranes. Neck has full range of motion without eliciting any pain. EYES: The sclera were anicteric and conjunctiva were pink and moist. Extraocular movements were intact and pupils were equal round and reactive to light. Eyelids were unremarkable. PULMONARY: Unlabored respirations. Good breath sounds bilaterally. No audible rales rhonchi or wheezing was noted. CARDIOVASCULAR: There is a regular rate and rhythm without any murmurs gallops or rubs. ABDOMEN: Soft and nontender with normal bowel sounds. SKIN: Skin is clear with no lesions or rashes and otherwise unremarkable. NEUROLOGIC: Patient is alert and oriented x3. Cranial nerves II through XII are grossly intact. Motor and sensory are also intact. Normal speech, volume and content. Symmetrical smile. MUSCULOSKELETAL: Normal extremities with adequate strength and full range of motion. LYMPHATICS: No significant lymphadenopathy is noted PSYCHIATRIC: Normal psychiatric evaluation. Limitations: no limitations Course Vital Signs 04/17/24 04/17/24 04/17/24 09:41 10:08 11:28 Temperature 97.9 F 98.3 F Pulse Rate 101 H 80 77 Respiratory 26 H 20 18 Rate Blood Pressure 145/107 132/96 97/77 O2 Sat by Pulse 96 95 99 Oximetry Medical Decision Making - Medical Decision Making EKG shows a sinus rhythm at 79 bpm MI was 161 QRS is 85 QT interval 341 QTc is 3 76. Patient's EKG shows no ST segment elevation or depression Was pt. sent in by a medical professional or institution (, KATY, MACHINE BUILDER, urgent care, hospital, or senior care...) When possible be specific @ -No Did you speak to anyone other than the patient for history (EMS, parent, family, police, friend...)? What history was obtained from this source @ -No Did you review nursing and triage notes (agree or disagree)? Why? @ -I reviewed and agree with nursing and triage notes Were old charts reviewed (outside hosp., previous admission, EMS record, old EKG, old radiological studies, urgent care reports/EKG's, senior care records)? Report findings @ -No old charts were reviewed Differential Diagnosis? @ -Differential Musculoskeletal Muscular strain, contusion, ligament sprain, fracture, arthritis, septic arthritis, bursitis, cellulitis, muscle spasm, nerve compression, DVT, arterial occlusion, herpes zoster, electrolyte abnormality, tumor.... This is not meant to be in all inclusive list EKG interpreted by me (3pts min.). @ -As above X-rays interpreted by me (1pt min.). @ -Chest x-ray shows no acute abnormality CT interpreted by me (1pt min.). @ -CT of the chest shows no acute abnormality U/S interpreted by me (1pt. min.). @ -None done What testing was considered but not performed or refused? (CT, X-rays, U/S, labs)? Why? @ -None What meds were considered but not given or refused? Why? @ -None Did you discuss the management of the patient with other professionals (professionals i.e. KATY Gerber, MACHINE BUILDER, lab, RT, psych nurse, social welfare research worker, vision mixer, teacher, transportation security officer, counter caser)? Give summary @ -No Was smoking cessation discussed for >3mins.? @ -No Was critical care preformed (if so, how long)? @ -No Were there social determinants of health that impacted care today? How? (Homelessness, low income, unemployed, alcoholism, drug addiction, transportation, low edu. Level, literacy, decrease access to med. care, long term, rehab)? @ -No Was there de-escalation of care discussed even if they declined (Discuss DNR or withdrawal of care, Hospice)? DNR status @ -No What co-morbidities impacted this encounter? (DM, HTN, Smoking, COPD, CAD, Cancer, CVA, ARF, Chemo, Hep., AIDS, mental health diagnosis, sleep apnea, morbid obesity)? @ -None Was patient admitted / discharged? Hospital course, mention meds given and route, prescriptions, significant lab abnormalities, going to OR and other pertinent info. @ -I went back into the room patient was feeling considerably better because of the Toradol and Dilaudid. Patient was pulling herself up in bed sitting up straight and moving around twisting because she was upset that no one could explain her pain. Patient was thrashing around in the bed and twisting [id number] with no pain exhibited even her friend who came with her spoke to me in the hallway and stated he was noticing this as well. Undiagnosed new problem with uncertain prognosis? @ -No Drug Therapy requiring intensive monitoring for toxicity (Heparin, Nitro, Insulin, Cardizem)? @ -No Were any procedures done? @ -No Diagnosis/symptom? @ -Chest wall contusion Acute, or Chronic, or Acute on Chronic? @ -Acute Uncomplicated (without systemic symptoms) or Complicated (systemic symptoms)? @ -Complicated Side effects of treatment? @ -No Exacerbation, Progression, or Severe Exacerbation? @ -No Poses a threat to life or bodily function? How? (Chest pain, USA, PA, pneumonia, PE, COPD, DKA, ARF, appy, cholecystitis, CVA, Diverticulitis, Homicidal, Suicidal, threat to staff... and all critical care pts) @ -No - Lab Data Result diagrams: 04/17/24 10:04 04/17/24 10:04 Lab Results 04/17/24 04/17/24 04/17/24 Range/Units 10:04 10:04 10:04 WBC 9.7 (3.8-10.6) k/uL RBC 4.49 (3.80-5.40) m/uL Hgb 13.3 (11.4-16.0) gm/dL Hct 42.0 (34.0-46.0) % MCV 93.6 (80.0-100.0) fL MCH 29.5 (25.0-35.0) pg MCHC 31.6 (31.0-37.0) g/dL RDW 13.3 (11.5-15.5) % Plt Count 422 (150-450) k/uL MPV 6.9 Neutrophils % 46 % Lymphocytes % 42 % Monocytes % 5 % Eosinophils % 5 % Basophils % 1 % Neutrophils # 4.5 (1.3-7.7) k/uL Lymphocytes # 4.1 (1.0-4.8) k/uL Monocytes # 0.5 (0-1.0) k/uL Eosinophils # 0.4 (0-0.7) k/uL Basophils # 0.1 (0-0.2) k/uL D-Dimer (<0.60) mg/L FEU Sodium 136 L (137-145) mmol/L Potassium 4.0 (3.5-5.1) mmol/L Chloride 103 (98-107) mmol/L Carbon Dioxide 28 (22-30) mmol/L Anion Gap 5 mmol/L BUN 19 H (7-17) mg/dL Creatinine 0.68 (0.52-1.04) mg/dL Est GFR (CKD-EPI)AfAm >90 (>60 ml/min/1.73 sqM) Est GFR (CKD-EPI)NonAf >90 (>60 ml/min/1.73 sqM) Glucose 101 H (74-99) mg/dL Calcium 9.3 (8.4-10.2) mg/dL Total Bilirubin 0.5 (0.2-1.3) mg/dL AST 19 (14-36) U/L ALT 15 (4-34) U/L Alkaline Phosphatase 58 (38-126) U/L Total Protein 7.4 (6.3-8.2) g/dL Albumin 4.5 (3.5-5.0) g/dL Influenza Type A (PCR) Not Detected (Not Detectd) Influenza Type B (PCR) Not Detected (Not Detectd) RSV (PCR) Not Detected (Not Detectd) SARS-CoV-2 (PCR) Not Detected (Not Detectd) 12/21/24 Range/Units 10:04 WBC (3.8-10.6) k/uL RBC (3.80-5.40) m/uL Hgb (11.4-16.0) gm/dL Hct (34.0-46.0) % MCV (80.0-100.0) fL MCH (25.0-35.0) pg MCHC (31.0-37.0) g/dL RDW (11.5-15.5) % Plt Count (150-450) k/uL MPV Neutrophils % % Lymphocytes % % Monocytes % % Eosinophils % % Basophils % % Neutrophils # (1.3-7.7) k/uL Lymphocytes # (1.0-4.8) k/uL Monocytes # (0-1.0) k/uL Eosinophils # (0-0.7) k/uL Basophils # (0-0.2) k/uL D-Dimer 0.69 H (<0.60) mg/L FEU Sodium (137-145) mmol/L Potassium (3.5-5.1) mmol/L Chloride (98-107) mmol/L Carbon Dioxide (22-30) mmol/L Anion Gap mmol/L BUN (7-17) mg/dL Creatinine (0.52-1.04) mg/dL Est GFR (CKD-EPI)AfAm (>60 ml/min/1.73 sqM) Est GFR (CKD-EPI)NonAf (>60 ml/min/1.73 sqM) Glucose (74-99) mg/dL Calcium (8.4-10.2) mg/dL Total Bilirubin (0.2-1.3) mg/dL AST (14-36) U/L ALT (4-34) U/L Alkaline Phosphatase (38-126) U/L Total Protein (6.3-8.2) g/dL Albumin (3.5-5.0) g/dL Influenza Type A (PCR) (Not Detectd) Influenza Type B (PCR) (Not Detectd) RSV (PCR) (Not Detectd) SARS-CoV-2 (PCR) (Not Detectd) Disposition Clinical Impression: Chest wall contusion Disposition: HOME SELF-CARE Condition: Good Instructions (If sedation given, give patient instructions): Chest Wall Pain (ED) Prescriptions: Ketorolac [Toradol] 10 mg PO Q8HR #15 tab Is patient prescribed a controlled substance at d/c from ED?: No Referrals: Lisandro Ashton MD [Primary Care Provider] - 1-2 days Time of Disposition: 12:53
[2024-04-17 10:10] LABS: Basophils # (A) 0.1 k/uL (0-0.2); Basophils % (A) 1 %; Eosinophils # (A) 0.4 k/uL (0-0.7); Eosinophils % (A) 5 %; HGB 13.3 gm/dL (11.4-16.0); Lymphocytes # (A) 4.1 k/uL (1.0-4.8); Lymphocytes % (A) 42 %; MCH 29.5 pg (25.0-35.0); MCHC 31.6 g/dL (31.0-37.0); MCV 93.6 fL (80.0-100.0); Mean Platelet Volume 6.9; Monocytes # (A) 0.5 k/uL (0-1.0); Monocytes % (A) 5 %; Neutrophils # (A) 4.5 k/uL (1.3-7.7); Neutrophils % (A) 46 %; Platelet Count 422 k/uL (150-450); RBC 4.49 m/uL (3.80-5.40); RDW 13.3 % (11.5-15.5); WBC 9.7 k/uL (3.8-10.6)
[2024-04-17 10:14] VITALS: TEMP 98.3
[2024-04-17 10:19] LABS: ALT 15 U/L (4-34); AST 19 U/L (14-36); African American GFR (CKD) >90 (>60 ml/min/1.73 sqM); Albumin 4.5 g/dL (3.5-5.0); Alkaline Phosphatase 58 U/L (38-126); Anion Gap 5 mmol/L; Blood Urea Nitrogen 19 mg/dL (7-17); Calcium 9.3 mg/dL (8.4-10.2); Carbon Dioxide 28 mmol/L (22-30); Chloride 103 mmol/L (98-107); Glucose 101 mg/dL (74-99); Non-African American GFR(CKD) >90 (>60 ml/min/1.73 sqM); Sodium 136 mmol/L (137-145); Total Bilirubin 0.5 mg/dL (0.2-1.3); Total Protein 7.4 g/dL (6.3-8.2)
--- NOTE | 2024-04-17 10:28 | XR ---
EXAMINATION TYPE: XR chest 2V DATE OF EXAM: 04/17/2024 10:18 AM COMPARISON: Chest radiographs from 11/30/2014 CLINICAL INDICATION: Female, 58 years old with history of Difficulty breathing ; [facility] TECHNIQUE: XR chest 2V Frontal and lateral views of the chest. FINDINGS: Lungs/Pleura: There is no evidence of pleural effusion, focal consolidation, or pneumothorax. Pulmonary vascularity: Unremarkable. Heart/mediastinum: Cardiomediastinal silhouette is unremarkable. Musculoskeletal: No acute osseous pathology. There is fixation hardware in the lower cervical spine. IMPRESSION: No acute cardiopulmonary disease/process. [facility], , 04/17/2024 10:26 AM
[2024-04-17 11:33] VITALS: BP 97/77; PULSE 77; RESP 18
--- NOTE | 2024-04-17 12:04 | CT ---
EXAMINATION TYPE: CT chest angio for PE DATE OF EXAM: 04/17/2024 11:30 AM COMPARISON: Chest radiograph from same day. CLINICAL INDICATION: Female, 58 years old with history of Chest pain, elevated D-dimer; Elevated d di theresa, chest pain post fall on to her chest, congestion TECHNIQUE/CONTRAST: CTA scan of the thorax is performed with IV Contrast, patient injected with 52 mL of Isovue 370, MIP images are created and reviewed these are created on a separate workstation.. CT DLP: 221.5 mGycm, Automated exposure control for dose reduction was used. FINDINGS: Lungs/Pleura: No evidence of focal consolidation, pleural effusion or pneumothorax. Airway: Large airways are patent. Heart: Heart is within normal limits for size. Vasculature: There is no evidence for a filling defect within the pulmonary vasculature to suggest ac [place] pulmonary embolism. The pulmonary artery is of normal size. Mediastinum: No gross evidence of adenopathy. Musculoskeletal: Mild degenerative disc disease changes are present throughout the thoracolumbar spin e. Fixation hardware in the cervical spine appears intact. Soft Tissues/lymph nodes: Unremarkable. Lower neck: No significant findings. Upper Abdomen: No significant findings. IMPRESSION: 1. No evidence of pulmonary embolism. Follow up recommendations for incidental pulmonary nodules, if there are any, are per [employer] [place] [employer] [employer] or [place] [employer]. https://radiopaedia.org/articles/coknbkjozy-oxfxezn-pmsrmykie-qvrazw-pdhfyhspzxszbyb-1?lang=us [facility], , 04/17/2024 12:01 PM
== END 2024-04-17 12:30 | disposition home or self-care (01) ==
LOC: EC 09:40
DX: S20.219A Contusion of unspecified front wall of thorax, initial encounter (principal); Z88.8 Allergy status to other drugs, medicaments and biological substances; W19.XXXA Unspecified fall, initial encounter; Y92.009 Unspecified place in unspecified non-institutional (private) residence as the place of occurrence of the external cause
CPT/HCPCS: 36415; 93005; 85379; 80053; 85025; 87636; 71046; 71275; 99285; 96374; 96375; 96376; J1885; J1171; Q9967

== ENCOUNTER → 2024-10-25 | Outpatient (CLI) | payer BC ==
--- NOTE | 2024-10-25 18:34 | MM ---
Reason for Exam: Screening (asymptomatic). Last screening mammogram was performed 12 month(s) ago. Patient History: Menarche at age 12. First Full-Term at age 19. Hysterectomy at age 40. Postmenopausal. Patient used Hormonal Contraceptives for 10 years. Mother had breast cancer, age 48. Risk Values: Deloris 5 year model risk: 2.6%. NCI Lifetime model risk: 12.1%. Prior Study Comparison: 07/05/2021 Bilateral Screening Mammogram, [facility]. 07/12/2022 Bilateral MG 3D screening mammo w/cad, [facility]. 10/09/2023 Bilateral MG 3D screening mammo w/cad, [facility]. Tissue Density: There are scattered areas of fibroglandular density. Findings: Analyzed By CAD. There is no suspicious group of microcalcifications or new suspicious mass in either breast. Overall Assessment: Negative, BI-RAD 1 Management: Screening Mammogram of both breasts in 1 year. Patient should continue monthly self-breast exams. A clinical breast exam by your physician is recommended on an annual basis. This exam should not preclude additional follow-up of suspicious palpable abnormalities. Note on Deloris scores and lifetime risk: 1. A Deloris score greater than 3% is considered moderate risk. If this is the case, consider specialist referral to assess eligibility for a risk reducing agent. 2. If overall lifetime risk for the development of breast cancer is 20% or higher, the patient may qualify for future screening with alternating mammogram and breast MRI. [facility], , 10/25/2024 5:33 PM. Electronically signed and approved by: Gautam Baca M.D. Radiologist
== END | disposition home or self-care (01) ==
LOC: RADMAMWWP 15:16
PROVIDERS: ATTEND Obstetrics & Gynecology
DX: Z12.31 Encounter for screening mammogram for malignant neoplasm of breast (principal); R92.323 Mammographic fibroglandular density, bilateral breasts; Z78.0 Asymptomatic menopausal state; Z92.0 Personal history of contraception; Z80.3 Family history of malignant neoplasm of breast
CPT/HCPCS: 77063; 77067